=== PATIENT | female | born 2000 | race Caucasian/White ===

== ENCOUNTER 2020-11-18 13:20 | Emergency (ER) | payer BC, SELFPAY ==
[2020-11-18 13:27] VITALS: BP 154/104; PULSE 112; RESP 16; TEMP 37.4; O2SAT 100
--- NOTE | 2020-11-18 14:18 | ED.GENADUL_ITS ---
Discharge Plan Disposition Patient Disposition: HOME Condition: Improving Discharge Details Clinical Impression: Migraine Primary Care Provider: Unknown,Unknown ED Provider: Shae Almanza Home Meds and New Rx's Prescriptions: No Action Nexplanon 68 mg Implant 68 mg SUBDERMAL DAILY RF: 0 Discharge Instructions Instructions: Migraine Headache (ED) Additional Instructions: I am concerned that your migraine was worse than typical because of your dehydration and physical exertion over the past 24 hours. Pain is improving after typical migraine treatment. Please treat as you typically have in the past. Please continue to encourage hydration. You may continue to use Tylenol and/or ibuprofen as needed for discomfort. Please follow up with primary care in one week for reevaluation. If you develop recurrent symptoms, fevers/chills, rash, visual changes or other new/worsening symptoms please seek care urgently once again. Medical Decision Making Patient is a pleasant 20-year-old female presenting today with chief complaint of headache and visual changes. She reports that she has chronic migraines. Typically has in a visual aura prior to onset of migraine. Comes in today as symptoms seem worse than her typical. 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 Had minimal PO intake or hydration during this time. States that it started typically with MOREIRA and scintillation to the right lower outter visual field of the right eye. This is typical for her migraines. However, typically it is relieved with Ibuprofen and lasts short period of time. Today, this has lasted about 3 hours despite her typical management. Feels dehydrated. Denies N/V. No fevers/chills. Denies rash. No trauma. She reeports that pain improved with talking or being, distracted, worsens when thinking about her MOREIRA. On exam, she appears nontoxic. Her neurologic exam is signficant for scinti llations to interupting field of vision to the lateral lower outter field of the right eye. Describes small flashes that are difficult to describe. AGain, similar to previous migraines but more persistent. Visual washburn otherwise intact. CN intact. No rash. No nuchal rigidity. Lungs clear, normal cardiac auscultation. Patient and I discussed imaging with the more persistent MOREIRA. However, as this is very similar to her previous migraines and visual aura, also considered this to be a more severe migraine likely associated with her recent physical demands and dehydration. We will hold off on imaging, treat like migraine and reassess. Plan for imaging if not improved. Labs reviewed. WBC 12.4. I see no evidence of [employer]ENOGR[employer] REPORTER infection at this time. She denies any systemic symptoms. This may be associated with recent physical stress or discomfort. No other signficant abnormality on labs. Patient given Compazine, Benadryl, hydration, APAP. She reports feeling significantly improved with resolution of her visual scintillations as well. She and I discussed continued care. She has plan for PCP near her home. she and I discussed strict return precautions. She will encourage hydration. Advised she continue to treat MOREIRA as she has in the past. All of her quesitons and cocnerns were addressed, she is in agreement with this plan. HPI General Mode of arrival: ambulatory . Date/Time Provider Initiated Documentation: 11/18/20 14:18 . Limitations to Documentation: no limitations . Information obtained by: patient and RN notes reviewed . History of Present Illness 20 year old F presents to the emergency department with the chief complaint of headache and visual changes, described as moderate and similar to prior episodes (similar to previous migraine but feels more intense and lasting longer), with intensity rated at 6. Quality is described as aching, and is localized to the head. Patient reports no radiation. Patient started experiencing this hour(s) and it has been constant. No relieving factors improve symptom(s), No exacerbating factors reported . Patient notes no other symptoms.. Patient did receive the following treatments prior to arriva l, NSAID Related Data Home Medications Medication Instructions Recorded Confirmed etonogestrel [Nexplanon] 68 mg SUBDERMAL DAILY 11/18/20 11/18/20 Allergies Allergy/AdvReac Type Severity Reaction Status Date / Time No Known Allergies Allergy Unverified 11/18/20 13:30 General Stated Complaint: Headache MEGA: 4 Review of Systems Constitutional Constitutional: Reports as per HPI, Denies chills, Reports fatigue, Denies fever(s), Reports headache(s) and Denies weakness Eyes Eyes: Reports as per HPI, Reports change in vision (describes scintillations to right lower outer visual field) and Reports photophobia ENT Ears, Nose, Mouth, and Throat: Denies vertigo, Reports headache(s) and Denies neck pain Cardiovascular Cardiovascular: Reports as per HPI, Denies chest pain, Denies lightheadedness, Denies radiating jaw, neck or arm pain, Denies dyspnea and Denies dyspnea on exertion Respiratory Respiratory: Reports as per HPI, Denies cough, Denies dyspnea and Denies dyspnea on exertion Gastrointestinal Gastrointestinal: Reports as per HPI, Denies nausea and Denies vomiting Musculoskeletal Musculoskeletal: Reports as per HPI, Denies neck pain and Denies numbness Integumentary/Breasts Skin/Breast: Reports as per HPI and Denies rash Neurologic Neurologic: Reports as per HPI, Denies behavioral changes, Denies confusion, Denies vertigo, Reports headache(s), Denies localized weakness, Denies numbness, Denies sensory deficit and Denies weakness Psychiatric Psychiatric: Denies behavioral changes and Denies confusion Endocrine Endocrine: Reports fatigue PFSH Social History Smoking/Tobacco Use Status: Never Smoking risk assessment performed?: Yes Alcohol Intake: current Alcohol Intake frequency: holidays/special occasions only Drug use: Never Substance use type: does not use Do you feel safe at home: Yes Do you feel safe in your relationship?: Yes Exam Const General: cooperative, healthy appearing, uncomfortable, no acute distress, well developed and well groomed Nutritional Appearance: average body habitus and well nourished Orientation: alert, awake and oriented x3 HENMT Head: normal to inspection, no palpable skull fracture, normocephalic and atraumatic Ears: hearing grossly normal bilaterally, external ears normal and TM's normal bilaterally General nose exam: external nose normal Mouth: oral mucosae normal and moist mucous membranes Throat: posterior oropharynx normal Eyes General: appearance normal, both eyes and all related structures Visual [place]: abnormal by confrontation (scintillations to right lower outter field, otherwise normal) Alignment and Position: alignment normal Periorbital: periorbital findings normal Eyelids: eyelids normal Sclera: sclerae normal Cornea: corneas normal Pupils: PERRL EOM: EOM intact bilaterally Neck Neck: normal visual inspection, full ROM, no lymphadenopathy and no meningeal signs Resp Effort & Inspection: normal respiratory effort, able to speak in complete sentences and no respiratory distress Auscultation: clear to auscultation bilaterally, no rales, no rhonchi and no wheezes Cardio Rate: regular rate Rhythm: regular rhythm Heart Sounds: S1 normal and S2 normal Back/Spine/Pelvis Cervical Spine: normal cervical lordosis and cervical ROM normal Skin General skin exam: no rashes or lesions noted Neuro General: patient alert, patient awake and patient oriented x3 Cranial Nerves: CN's II-XI intact bilaterally Cognition: normal cognition Speech: speech normal Gait: normal gait Motor: muscle tone normal throughout, strength 5/5 throughout, no pronator drift, no movement abnormalities noted and no fasciculations Sensory Exam: no sensory deficits noted Coordination: [id number] test normal and [id number] test normal Extrem General: normal to inspection, capillary refill normal, no pedal edema and no calf tenderness Psych Appearance: grossly normal and well kempt Mental Status: mental status grossly normal Speech and Movement: speech and movement normal Course Vital Signs Vital signs: Vital Signs Temperature 37.4 C 11/18/20 13:27 Pulse 112 H 11/18/20 13:27 Respiratory Rate 16 11/18/20 13:27 Blood Pressure 154/104 H 11/18/20 13:27 Pulse Oximetry 100 11/18/20 13:27 Temperature 37.4 C 11/18/20 13:27 Temperature Source Temporal Artery Scan 11/18/20 13:27 Pulse 112 H 11/18/20 13:27 Respiratory Rate 16 11/18/20 13:27 Respiratory Effort Non-Labored 11/18/20 13:31 Blood Pressure 154/104 H 11/18/20 13:27 Blood Pressure Position Sitting 11/18/20 13:27 Pulse Oximetry 100 11/18/20 13:27 Oxygen Delivery Method Room Air 11/18/20 13:27 Oxygen Flow Rate 0 11/18/20 13:27 Pain Level 5 11/18/20 13:27
[2020-11-18 14:57] LABS: HCT 41.6 % (36.0-46.0); HGB 13.9 g/dL (11.2-15.7); MCH 30.1 pg (27.0-33.0); MCHC 33.4 % (32.0-36.0); MPV 9.2 fL (8.0-11.0); Platelet Count 307 10^3/uL (130-400); RBC 4.62 10^6/uL (3.93-5.22); RDW 11.5 % (11.7-14.6); RDW-SD 37.9 fL; WBC 12.44 10^3/uL (4.4-10.8)
[2020-11-18] MEDS: diphenhydrAMINE 50 MG/ML VIAL 25 MG IVP (15:03)
[2020-11-18] MEDS: Prochlorperazine 10 MG/2 ML VIAL IVP (15:03)
[2020-11-18] MEDS: ACETAMINOPHEN 1,000 MG/100 ML BTL 400 MG IVPB (15:04)
[2020-11-18] MEDS: Dexamethasone 10 MG/ML VIAL IVP (15:04)
[2020-11-18] MEDS: Normal Saline Flush 10 ML SYR IVP (15:04)
[2020-11-18] MEDS: Normal Saline 1,000 ML 1000 ML IV (15:05)
[2020-11-18 15:09] LABS: ALT 21 U/L (14-59); AST 15 U/L (15-37); Albumin 4.6 g/dL (3.4-5.0); Alkaline Phosphatase 71 U/L (46-116); Anion Gap 10.1 mmol/L (3-11); BUN 10 mg/dL (7-18); Bilirubin, Total 0.4 mg/dL (0.2-1.0); CO2 27.9 mmol/L (21.0-32.0); CREATININE 0.8 mg/dL (0.55-1.02); Calcium 8.9 mg/dL (8.5-10.1); Chloride 103 mmol/L (98-107); Glucose 112 mg/dL (74-106); Potassium 3.3 mmol/L (3.5-5.1); Sodium 141 mmol/L (136-145); Total Protein 7.9 g/dL (6.4-8.2)
[2020-11-18 16:33] VITALS: BP 132/83; PULSE 98; RESP 16; TEMP 37.1; O2SAT 98
== END 2020-11-18 16:37 | disposition home or self-care (01) ==
PROVIDERS: Emergency Provider Physician Assistant
DX: G43.109 Migraine with aura, not intractable, without status migrainosus (principal); E86.0 Dehydration
CPT/HCPCS: 36415; 80053; 81025; 85027; 96361; 96365; 96375; 99284; J0131; J0780; J1100; J1200